=== PATIENT | female | born 1960 | race African-American/Black ===

== ENCOUNTER 2018-07-07 19:22 | Emergency (ER) | payer OTHER, MEDICAID ==
[2018-07-07] MEDS: ACETAMINOPHEN 325 MG TAB PO (21:12)
== END 2018-07-07 23:14 | disposition home or self-care (01) ==
LOC: E/R 19:22
DX: S70.02XA Contusion of left hip, initial encounter (principal); S80.01XA Contusion of right knee, initial encounter; I10 Essential (primary) hypertension; W01.0XXA Fall on same level from slipping, tripping and stumbling without subsequent striking against object, initial encounter; Y92.009 Unspecified place in unspecified non-institutional (private) residence as the place of occurrence of the external cause
CPT/HCPCS: 73502; 73510; 73562; 99284-25